=== PATIENT | female | born 1995 | race Hispanic/Latino ===

== ENCOUNTER 2017-09-13 23:45 | Inpatient (IN) | payer OTHER ==
[~2017-09-13] VITALS: Ht 165.1 cm; Wt 95.7 kg
[2017-09-13 23:40] VITALS: BP 153/68
[~2017-09-13 23:45] MED LIST: DIUREX 50-162.51 TAB PO
[2017-09-14] VITALS (84 sets, daily range): BP systolic 113–187; BP diastolic 42–102
[2017-09-14] MEDS ORDERED: DIUREX 50-162.51 TAB PO (00:16)
[2017-09-14 05:34] LABS: HEMATOCRIT 25.2 % (37.0-47.0); HEMOGLOBIN 7.6 g/dl (12.0-16.0); IMMATURE GRANULOCYTES 1.3 % (0.0-1.0); MEAN CELL VOLUME 69.8 fL CALC (80.0-100.0); MEAN CORPUSCULAR HGB 21.1 pG CALC (26.0-32.0); MEAN CORPUSCULAR HGB CONC 30.2 g/L CALC (32.0-36.0); NEUT# 9.47 thou/uL (2.00-7.15); RED BLOOD COUNT 3.61 mill/uL (4.20-5.60); RED CELL DISTRI WIDTH 17.5 % (11.5-15.5)
[2017-09-14 05:41] LABS: ALBUMIN 3.2 g/dL (3.2-5.0); ALKALINE PHOSPHATASE 79 u/l (38-126); ANION GAP 13 (6-22 (CALC)); BILIRUBIN, TOTAL 0.5 mg/dL (0.0-1.4); BUN 8 mg/dL (7-17); BUN/CREATININE RATIO 12 (12-20 (CALC)); CARBON DIOXIDE 21 mmol/l (22-30); CHLORIDE 109 mmol/l (95-108); CREATININE 0.7 mg/dL (0.5-1.0); GFR > 60 ML/MIN (>=60 (CALC)); GFR FOR AFR.AMER. > 60 ML/MIN (>=60 (CALC)); GLUCOSE 98 mg/dL (65-105); SGOT/AST 12 u/l (14-36); SGPT/ALT 20 u/l (9-52); SODIUM 138 mmol/l (137-146); TOTAL PROTEIN 6.1 g/dL (6.3-8.2)
[2017-09-14 17:39] LABS: HEMATOCRIT 24.7 % (37.0-47.0); HEMOGLOBIN 7.2 g/dl (12.0-16.0)
[2017-09-14 22:15] LABS: IMMATURE GRANULOCYTES 1.8 % (0.0-1.0); MEAN CELL VOLUME 70.4 fL CALC (80.0-100.0); MEAN CORPUSCULAR HGB 20.7 pG CALC (26.0-32.0); MEAN CORPUSCULAR HGB CONC 29.5 g/L CALC (32.0-36.0); PLATELET COUNT 183 thou/uL (130-400); RED BLOOD COUNT 2.94 mill/uL (4.20-5.60); RED CELL DISTRI WIDTH 17.7 % (11.5-15.5)
[2017-09-14 22:17] LABS: HEMATOCRIT 20.7 % (37.0-47.0); HEMOGLOBIN 6.1 g/dl (12.0-16.0)
[2017-09-14 22:18] LABS: ANISOCYTOSIS FEW; BAND 8 % (0-8); HYPOCHROMIA MODERATE; MANUAL DIFFERENTIAL YES; MICROCYTOSIS FEW
[2017-09-15] VITALS (14 sets, daily range): BP systolic 127–154; BP diastolic 56–83
[2017-09-15 06:14] LABS: IMMATURE GRANULOCYTES 0.7 % (0.0-1.0); MEAN CELL VOLUME 70.6 fL CALC (80.0-100.0); MEAN CORPUSCULAR HGB 21.1 pG CALC (26.0-32.0); MEAN CORPUSCULAR HGB CONC 29.9 g/L CALC (32.0-36.0); NEUT# 11.73 thou/uL (2.00-7.15); RED BLOOD COUNT 2.65 mill/uL (4.20-5.60); RED CELL DISTRI WIDTH 17.8 % (11.5-15.5)
[2017-09-15 10:35] LABS: HEMATOCRIT 18.9 % (37.0-47.0); HEMOGLOBIN 5.6 g/dl (12.0-16.0)
[2017-09-15 14:42] LABS: HEMATOCRIT 27.9 % (37.0-47.0); HEMOGLOBIN 8.6 g/dl (12.0-16.0); MEAN CELL VOLUME 74.8 fL CALC (80.0-100.0); MEAN CORPUSCULAR HGB 23.1 pG CALC (26.0-32.0); MEAN CORPUSCULAR HGB CONC 30.8 g/L CALC (32.0-36.0); NEUT# 16.45 thou/uL (2.00-7.15); RED BLOOD COUNT 3.73 mill/uL (4.20-5.60); RED CELL DISTRI WIDTH 19.1 % (11.5-15.5)
[2017-09-16 08:12] VITALS: BP 99/67
[2017-09-16 16:49] VITALS: BP 152/64
[2017-09-16 21:40] VITALS: BP 138/67
[2017-09-17 06:16] LABS: HEMATOCRIT 21.7 % (37.0-47.0); IMMATURE GRANULOCYTES 0.9 % (0.0-1.0); MEAN CELL VOLUME 74.8 fL CALC (80.0-100.0); MEAN CORPUSCULAR HGB 23.4 pG CALC (26.0-32.0); MEAN CORPUSCULAR HGB CONC 31.3 g/L CALC (32.0-36.0); NEUT# 7.76 thou/uL (2.00-7.15); RED BLOOD COUNT 2.9 mill/uL (4.20-5.60); RED CELL DISTRI WIDTH 19.4 % (11.5-15.5)
[2017-09-17 06:18] LABS: HEMOGLOBIN 6.8 g/dl (12.0-16.0)
[2017-09-17 07:15] VITALS: BP 141/69
[2017-09-17 14:42] VITALS: BP 131/60
[2017-09-17 18:28] LABS: HEMATOCRIT 23.3 % (37.0-47.0); HEMOGLOBIN 7.1 g/dl (12.0-16.0); IMMATURE GRANULOCYTES 1.1 % (0.0-1.0); MEAN CELL VOLUME 74.9 fL CALC (80.0-100.0); MEAN CORPUSCULAR HGB 22.8 pG CALC (26.0-32.0); MEAN CORPUSCULAR HGB CONC 30.5 g/L CALC (32.0-36.0); NEUT# 7.59 thou/uL (2.00-7.15); RED BLOOD COUNT 3.11 mill/uL (4.20-5.60); RED CELL DISTRI WIDTH 19.8 % (11.5-15.5)
[2017-09-18 05:34] VITALS: BP 144/67
[2017-09-18 07:55] VITALS: BP 143/73
[2017-09-18 17:50] VITALS: BP 142/78
[2017-09-18] MEDS ORDERED: KEFLEX500 MG PO (19:27)
[2017-09-18] MEDS ORDERED: IBUPROFEN600 MG PO (19:28)
[2017-09-18] MEDS ORDERED: LORTAB 7.57.5 MG PO (19:29)
== END 2017-09-18 21:00 | disposition home or self-care (01) | DRG 765 ==
LOC: OBOP 23:45 → OB 23:45 → OBOP 09-14 05:37 → OB 09-14 05:38
PROVIDERS: ADMIT Obstetrics & Gynecology; ATTEND Obstetrics & Gynecology
PROC: 10D00Z1 Extraction of Products of Conception, Low, Open Approach (ICD-10-PCS; principal; 2017-09-14)
PROC: 0W3J0ZZ Control Bleeding in Pelvic Cavity, Open Approach (ICD-10-PCS; 2017-09-14)
PROC: 30233N1 Transfusion of Nonautologous Red Blood Cells into Peripheral Vein, Percutaneous Approach (ICD-10-PCS; 2017-09-15)
PROC: 30233N1 Transfusion of Nonautologous Red Blood Cells into Peripheral Vein, Percutaneous Approach (ICD-10-PCS; 2017-09-15)
DX: O64.8XX0 Obstructed labor due to other malposition and malpresentation, not applicable or unspecified (principal); O71.81 Laceration of uterus, not elsewhere classified; O64.0XX0 Obstructed labor due to incomplete rotation of fetal head, not applicable or unspecified; O90.81 Anemia of the puerperium; D62 Acute posthemorrhagic anemia; O86.4 Pyrexia of unknown origin following delivery; Z37.0 Single live birth; Z3A.37 37 weeks gestation of pregnancy
CPT/HCPCS: J2540; P9016